=== PATIENT | male | born 1945 | race Caucasian/White ===

== ENCOUNTER 2017-01-29 10:05 | Day surgery (SDC) | payer BC ==
--- NOTE | ~2017-01-29 | EGD ---
EGD REPORT [facility] [address] [place] [place] [address] NAME: EDWARD HAQUE : [birth year] STATUS : REG [facility]#: [id number] AGE: 72 ADM/REG DATE : 01/29/17 MR#: [id number] REPORT SERV DATE: 01/29/17 DICTATED BY: ANGELES GUNDERSON DATE: 01/29/17 REPORT STATUS : Draft TRANSCRIBED BY: [employer] DATE: 01/29/17 [facility] Patient Name: Edward Haque Date of : 1945 Attending MD: ANGELES GUNDERSON MD Procedure Date No Time: 01/29/2017 Procedure: Colonoscopy Indications: High risk colon cancer surveillance: Personal history of colonic polyps, FH of Colon Cancer -distant relative Referring MD: ANGELES ALVES MD Medicines: as per anesthesia Complications: No immediate complications. Procedure: Pre-Anesthesia Assessment: - ASA Grade Assessment: II - A patient with mild systemic disease. After I obtained informed consent, the scope was passed under direct vision. Throughout the procedure, the patient's blood pressure, pulse, and oxygen saturations were monitored continuously. The PCF [id number] was introduced through the anus and advanced to the cecum, identified by appendiceal orifice and ileocecal valve. The colonoscopy was performed without difficulty. The patient tolerated the procedure. The quality of the bowel preparation was adequate to identify polyps. Findings: The perianal and digital rectal examinations were normal. A few small and large-mouthed diverticula were found in the sigmoid colon and in the descending colon. Internal hemorrhoids were found during endoscopy and were mild. Impression: - Diverticulosis in the sigmoid colon and in the descending colon. - Internal hemorrhoids. Recommendation: - Repeat colonoscopy in 5 years for surveillance. Procedure Code(s): --- Professional --- 51073, Colonoscopy, flexible, proximal to splenic flexure; diagnostic, with or without collection of specimen(s) by brushing or washing, with or without colon decompression (separate procedure) Diagnosis Code(s): --- Professional --- K64.8, Other hemorrhoids EGD REPORT [facility] [address] [place], [place] [address] [place]. [address] NAME: EDWARD HAQUE : [birth year] STATUS : REG [facility]#: [id number] AGE: 72 ADM/REG DATE : 01/29/17 MR#: [id number] REPORT SERV DATE: 01/29/17 DICTATED BY: ANGELES GUNDERSON. DATE: 01/29/17 REPORT STATUS : Draft TRANSCRIBED BY: [employer] DATE: 01/29/17 K57.30, Diverticulosis of large intestine without perforation or abscess without bleeding Z86.010, Personal history of colonic polyps Z80.0, Family history of malignant neoplasm of digestive organs CPT copyright 2013 [employer]. All rights reserved. The codes documented in this report are preliminary and upon online journalist review may be revised to meet current compliance requirements. ANGELES GUNDERSON MD 01/29/2017 12:24 PM This report has been signed electronically. Number of Addenda: 0 Note Initiated On: 01/29/2017 11:59 AM Scope Withdrawal Time 0 hours 10 minutes 56 seconds [address] [place] [address]
[~2017-01-29 10:05] MED LIST: NEUR400 PO; NEUR600 PO; REFRESH PLUS0.5 % OPH; TAMBOCOR PO; X5 PO
== END 2017-01-29 23:59 | disposition home or self-care (01) ==
LOC: DMU 10:05
PROVIDERS: Internal Medicine Gastroenterology
PROC: 0DJD8ZZ Inspection of Lower Intestinal Tract, Via Natural or Artificial Opening Endoscopic (ICD-10-PCS; principal; 2017-01-29 11:30)
DX: Z12.11 Encounter for screening for malignant neoplasm of colon (principal); K64.8 Other hemorrhoids; G62.9 Polyneuropathy, unspecified; I49.9 Cardiac arrhythmia, unspecified; K57.30 Diverticulosis of large intestine without perforation or abscess without bleeding; Z86.010 Personal history of colon polyps; Z80.0 Family history of malignant neoplasm of digestive organs; Z98.890 Other specified postprocedural states; Z85.820 Personal history of malignant melanoma of skin; Z79.899 Other long term (current) drug therapy